=== PATIENT | male | born 1970 | race African-American/Black ===

== ENCOUNTER 2016-12-13 14:24 | Emergency (ER) | payer MEDICARE, OTHER ==
[~2016-12-13] VITALS: Ht 172.7 cm; Wt 95.5 kg
[~2016-12-13 14:24] MED LIST: AMLO-512 PO; ATOR20TA65 PO; BACL10TA PO; FURO40 PO; HYDR-3110 PO; LISI-662 PO; POTA8TAB4 PO; WARF7.5 PO
[2016-12-13] MEDS ORDERED: OMEP20CA10 PO (14:35)
[2016-12-13] MEDS ORDERED: ALBU8HFA IH (14:35)
[2016-12-13] MEDS ORDERED: HYDR-3421 PO (14:35)
[2016-12-13] MEDS ORDERED: CARV25TA32 PO (14:35)
[2016-12-13] MEDS ORDERED: FUROSEMIDE 40 MG/4 ML VIAL IVP ONE (15:30)
[2016-12-13] MEDS ORDERED: ASPIRIN 325 MG TABLET PO ONE (15:30)
[2016-12-13 15:38] LABS: CALCIUM, TOTAL 8.5 mg/dL (8.8-10.5); CREATININE 1.81 mg/dL (0.60-1.30); POTASSIUM 4.2 mmol/L (3.5-5.1)
[2016-12-13 15:39] LABS: BASOPHILS % (AUTO) 0.5 % (0.0-2.0); EOSINOPHILS % (AUTO) 1.7 % (1.0-6.0); LYMPHOCYTES # (AUTO) 1.1 K/uL (1.0-4.8); LYMPHOCYTES % (AUTO) 20.3 % (22.0-44.0); MEAN CORPUSCULAR HEMOGLOBIN 28.9 pg (26.0-34.0); MEAN CORPUSCULAR HGB CONC 33.2 G/dL (31.0-37.0); MEAN CORPUSCULAR VOLUME 87 fL (80-100); MONOCYTES # (AUTO) 0.3 K/uL (0.1-1.0); MONOCYTES % (AUTO) 5.6 % (2.0-9.0); NEUTROPHILS # (AUTO) 3.9 K/uL (1.8-7.7); NEUTROPHILS % (AUTO) 71.9 % (40.0-70.0); PLATELET COUNT (AUTO) 210 K/uL (150-450); RED CELL DISTRIBUTION WIDTH 15.7 % (11.5-14.5); WHITE BLOOD COUNT (AUTO) 5.4 K/uL (4.5-11.0)
[2016-12-13 15:44] LABS: ALBUMIN 3.4 g/dL (3.4-5.0); BILIRUBIN,TOTAL 0.8 mg/dL (0.1-1.0); TOTAL PROTEIN, SERUM 6.7 g/dL (6.4-8.2)
[2016-12-13 17:20] VITALS: BP 130/77
== END 2016-12-13 17:50 | disposition home or self-care (01) ==
LOC: EMS 14:25
DX: I50.9 Heart failure, unspecified (principal); I48.91 Unspecified atrial fibrillation; N28.9 Disorder of kidney and ureter, unspecified; E78.00 Pure hypercholesterolemia, unspecified
CPT/HCPCS: 36415; 71010; 80053; 83880; 84484; 85025; 93005; 96374; 99285; J1940

== ENCOUNTER 2020-11-26 17:08 | Emergency (ER) | payer MEDICARE, OTHER ==
[~2020-11-26] VITALS: Ht 172.7 cm; Wt 80.5 kg
[~2020-11-26 17:08] MED LIST changes: +ALBU8HFA IH; +AMLO-258 PO; -AMLO-512 PO; +CARV25TA32 PO; -HYDR-3110 PO; +HYDR-3421 PO; +HYDR-3831 PO; -LISI-662 PO; +LISI-894 PO; +OMEP20CA12 PO; -WARF7.5 PO; +WARF7.5T7 PO
[2020-11-26] MEDS ORDERED: BUSP10TA23 PO (17:34)
[2020-11-26] MEDS ORDERED: PRED10 PO (17:34)
[2020-11-26] MEDS ORDERED: POLY17PO47 PO (17:34)
[2020-11-26] MEDS ORDERED: SACU1TAB7 PO (17:34)
[2020-11-26] MEDS ORDERED: POTA20TA83 PO (17:34)
[2020-11-26] MEDS ORDERED: PARO-38 PO (17:34)
[2020-11-26] MEDS ORDERED: APIX5TAB PO (17:34)
[2020-11-26] MEDS ORDERED: LORazepam 1 MG TABLET PO ONE (18:45)
[2020-11-26 23:00] VITALS: BP 126/72
[2020-11-26 23:51] LABS: APPEARANCE,URINE CLEAR (CLEAR); BILIRUBIN,URINE NEGATIVE (NEGATIVE); GLUCOSE, URINE (UA) NEGATIVE (NEGATIVE); KETONES,URINE NEGATIVE (NEGATIVE); LEUKOCYTE ESTERASE ,URINE NEGATIVE (NEGATIVE); NITRATE,URINE NEGATIVE (NEGATIVE); OCCULT BLOOD,URINE NEGATIVE (NEGATIVE); PROTEIN,URINE NEGATIVE (NEGATIVE); UROBILINOGEN,URINE 0.2 mg/dL (<=1.0)
== END 2020-11-26 23:31 | disposition home or self-care (01) ==
LOC: EMS 17:15
DX: K59.00 Constipation, unspecified (principal); I11.0 Hypertensive heart disease with heart failure; I50.9 Heart failure, unspecified; E78.00 Pure hypercholesterolemia, unspecified; F41.9 Anxiety disorder, unspecified; I48.91 Unspecified atrial fibrillation; R21 Rash and other nonspecific skin eruption
CPT/HCPCS: 74176; 81003; 99285

== ENCOUNTER 2020-12-13 11:18 | Day surgery (SDC) | payer OTHER ==
[2020-12-11 14:10] LABS: COVID AG,FIA SOURCE NASOPHARYNGEAL
[~2020-12-13] VITALS: Ht 172.7 cm; Wt 75.0 kg
[~2020-12-13 11:18] MED LIST changes: -ALBU8HFA IH; +APIX5TAB PO; -BACL10TA PO; +BUSP10TA23 PO; -HYDR-3421 PO; -HYDR-3831 PO; -LISI-894 PO; -OMEP20CA12 PO; +PARO-38 PO; +POTA20TA83 PO; -POTA8TAB4 PO; +SACU1TAB7 PO; +SODIUM CHLORIDE 0.9% 1,000 ML ONE; -WARF7.5T7 PO
[2020-12-13] MEDS ORDERED: PROPOFOL 1% 20 ML VIAL IVP ONE (12:00)
[2020-12-13] MEDS ORDERED: SODIUM CHLORIDE 0.9% 1,000 ML IV ONE (12:00)
== END 2020-12-13 14:20 | disposition home or self-care (01) ==
LOC: SURGERY 11:18
PROVIDERS: ATTEND Internal Medicine Gastroenterology
DX: K59.04 Chronic idiopathic constipation (principal); R63.4 Abnormal weight loss; K63.5 Polyp of colon; K64.8 Other hemorrhoids; K57.30 Diverticulosis of large intestine without perforation or abscess without bleeding; Z95.5 Presence of coronary angioplasty implant and graft; J45.909 Unspecified asthma, uncomplicated; F32.9 Major depressive disorder, single episode, unspecified; E78.00 Pure hypercholesterolemia, unspecified; F41.9 Anxiety disorder, unspecified; I48.91 Unspecified atrial fibrillation; I11.0 Hypertensive heart disease with heart failure; I50.9 Heart failure, unspecified; E78.5 Hyperlipidemia, unspecified; Z98.890 Other specified postprocedural states; Z79.899 Other long term (current) drug therapy
CPT/HCPCS: 45378; 87426; 93005; C9803; J2704; J7030